=== PATIENT | female | born 1950 | race Caucasian/White ===

== ENCOUNTER → 2018-01-06 | Outpatient (CLI) | payer MEDICARE | END | disposition home or self-care (01) | LOC: CFH 08:57 → EDSTATUS 09:00 | PROVIDERS: ATTEND Internal Medicine Cardiovascular Disease | DX: I08.0 Rheumatic disorders of both mitral and aortic valves (principal); I10 Essential (primary) hypertension; I44.7 Left bundle-branch block, unspecified; E78.5 Hyperlipidemia, unspecified | CPT/HCPCS: 93306 ==

== ENCOUNTER → 2018-09-03 | Outpatient (CLI) | payer MEDICARE | END | disposition home or self-care (01) | LOC: CFH 14:01 | PROVIDERS: ATTEND Family Medicine | DX: M79.604 Pain in right leg (principal); R60.0 Localized edema ==

== ENCOUNTER → 2019-01-28 | Outpatient (CLI) | payer MEDICARE | END | disposition home or self-care (01) | LOC: CFH 10:49 | PROVIDERS: ATTEND Nurse Practitioner Family | DX: M47.814 Spondylosis without myelopathy or radiculopathy, thoracic region (principal) | CPT/HCPCS: 72146 ==

== ENCOUNTER → 2019-11-11 | Outpatient (CLI) | payer MEDICARE ==
[~2019-11-11] MED LIST: AMLO-150 PO; ASPI81TA45 PO; BIFI4CAP PO; BUPR-86 PO; BUPR150T73 PO; CARV12.52 PO; CHLO25TA PO; CHOL200024 PO; IBAN150T15 PO; IRBE150T25 PO; ROSU10TA2 PO
[2019-11-11 14:56] LABS: BASOPHILS # (AUTO) 0.07 x10^3/uL (0-0.1); BASOPHILS % (AUTO) 1 % (0-1); EOSINOPHILS # (AUTO) 0.21 x10^3/uL (0-0.4); EOSINOPHILS % (AUTO) 3 % (1-7); LYMPHOCYTES # (AUTO) 2.04 x10^3/uL (1-3.4); LYMPHOCYTES % (AUTO) 24 % (22-44); MD NO; MEAN CORPUSCULAR HEMOGLOBIN 31.5 pg (27.0-34.8); MEAN CORPUSCULAR HGB CONC 33.7 g/dL (32.4-35.8); MEAN CORPUSCULAR VOLUME 93.7 fL (80-100); MEAN PLATELET VOLUME 8.1 fL (7.4-10.4); MONOCYTES % (AUTO) 8 % (2-9); NEUTROPHILS # (AUTO) 5.42 x10^3/uL (1.8-6.8); NEUTROPHILS % (AUTO) 64 % (42-75); PLATELET COUNT 292 x10^3/uL (130-400); RED BLOOD COUNT 4.45 x10^6/uL (3.82-5.3); RED CELL DISTRIBUTION WIDTH 13.4 % (9.6-15.2)
[2019-11-11 15:06] LABS: ALANINE AMINOTRANSFERASE 16 U/L (12-78); ALBUMIN 3.7 g/dL (3.4-5.0); ANION GAP 6 mmol/L (5-15); CALCIUM 8.8 mg/dL (8.5-10.1); CHLORIDE 106 mmol/L (98-107); CREATININE 0.84 mg/dL (0.55-1.02)
[2019-11-11 15:09] LABS: ALKALINE PHOSPHATASE 59 U/L (45-117); BILIRUBIN,TOTAL 0.4 mg/dL (0.2-1.0); TOTAL PROTEIN 6.7 g/dL (6.4-8.2)
== END | disposition home or self-care (01) ==
LOC: STAR 13:42
PROVIDERS: ATTEND Orthopaedic Surgery
DX: Z01.818 Encounter for other preprocedural examination (principal); M16.11 Unilateral primary osteoarthritis, right hip
CPT/HCPCS: 36415; 80053; 85025; 87081; 93005

== ENCOUNTER 2019-11-22 08:04 | Observation (INO) | payer MEDICARE ==
[~2019-11-22] VITALS: Ht 162.6 cm; Wt 68.8 kg
[~2019-11-22 08:04] MED LIST changes: +EPINEPHRINE 1 MG/ML, 1ML ONE; +FENTANYL PF 250 MCG/5ML ONE; +KETOROLAC 60 MG/2 ML ONE; +MIDAZOLAM 1 MG/ML, 2ML ONE; +ROPIvacaine/PF 0.2%, 20 ML ONE; +SODIUM CHLORIDE 0.9% 50 ML ONE; +TRANEXAMIC ACID 100 MG/ML, 10ML ONE; +VANCOMYCIN 1,000 MG ONE
[2019-11-22] MEDS ORDERED: LACTATED RINGERS 1,000 ML IV SCH (08:42)
[2019-11-22 08:44] VITALS: BP 133/84
[2019-11-22] MEDS ORDERED: SUGAMMADEX 200 MG/2 ML IVPush ONE ×2 (08:51→09:55)
[2019-11-22] MEDS ORDERED: DEXAMETHASONE 4 MG/ML, 1ML ONE (08:52)
[2019-11-22] MEDS ORDERED: PROPOFOL 10 MG/ML, 20ML ONE (08:52)
[2019-11-22] MEDS ORDERED: SUCCINYLCHOLINE 20 MG/ML, 10ML ONE (08:52)
[2019-11-22] MEDS ORDERED: ROCURONIUM 10MG/ML,5ML ONE (08:52)
[2019-11-22] MEDS ORDERED: ONDANSETRON 2MG/ML, 2ML ONE (08:52)
[2019-11-22] MEDS ORDERED: GLYCOPYRROLATE 0.2MG/1ML, 5ML ONE (08:52)
[2019-11-22] MEDS ORDERED: NEOSTIGMINE 1 MG/ML, 10ML ONE (08:52)
[2019-11-22] MEDS ORDERED: CEFAZOLIN 1,000 MG ONE (08:52)
[2019-11-22] MEDS ORDERED: LIDOCAINE-MPF 1%, 2ML INFIL ONE (09:00)
[2019-11-22] MEDS ORDERED: ACETAMINOPHEN 500 MG TABLET ONE ×2 (09:37)
[2019-11-22] MEDS ORDERED: GABAPENTIN 300 MG CAPSULE ONE ×2 (09:37→09:38)
[2019-11-22] MEDS ORDERED: PROMETHAZINE 25 MG/ML, 1ML IV PRN (11:00)
[2019-11-22] MEDS ORDERED: HYDROmorphone 2 MG/ML, 1ML IVPush PRN (11:00)
[2019-11-22] MEDS ORDERED: MEPERIDINE/PF 25MG/0.5ML IVPush PRN (11:00)
[2019-11-22] MEDS ORDERED: ALBUTEROL SULFATE 2.5 MG/3 ML NPPB PRN (11:00)
[2019-11-22] MEDS ORDERED: DIAZEPAM 5 MG/ML, 2ML IVPush PRN (11:00)
[2019-11-22] MEDS ORDERED: LABETALOL 5MG/ML, 20ML IV PRN (11:00)
[2019-11-22] MEDS ORDERED: hydrALAzine 20 MG/ML, 1ML IV PRN (11:00)
[2019-11-22] MEDS ORDERED: FENTANYL PF 100 MCG/2ML ONE (11:47)
[2019-11-22] MEDS ORDERED: OXYcodone 5 MG/5 ML ORAL.SOL UDC ONE (11:48)
[2019-11-22] MEDS: OXYcodone 5 MG/5 ML ORAL.SOL UDC PO PRN ×2 (11:50→12:17)
[2019-11-22] MEDS: FENTANYL PF 100 MCG/2ML IV PRN ×2 (11:51→12:16)
[2019-11-22] MEDS ORDERED: SENNA/DOCUSATE TABLET PO PRN (12:00)
[2019-11-22] MEDS ORDERED: HYDROmorphone 1 MG/ML, 1ML INJ IVPush PRN (12:00)
[2019-11-22] MEDS ORDERED: DIPHENHYDRAMINE 25 MG CAPSULE PO PRN (12:00)
[2019-11-22] MEDS ORDERED: SCOPOLAMINE PATCH, 1.5MG PATCH.TD72 TD SCH (12:00)
[2019-11-22] MEDS ORDERED: PROMETHAZINE 12.5 MG SUPP PR PRN (12:00)
[2019-11-22] MEDS ORDERED: BISACODYL 10 MG SUPP PR PRN (12:00)
[2019-11-22] MEDS ORDERED: PSYLLIUM PACKET PO PRN (12:00)
[2019-11-22] MEDS ORDERED: ONDANSETRON 4 MG TABLET PO PRN (12:00)
[2019-11-22] MEDS ORDERED: ALUMINUM/MAG/SIMETHICONE 30 ML UDC PO PRN (12:00)
[2019-11-22] MEDS ORDERED: ONDANSETRON 2MG/ML, 2ML IV PRN (12:00)
[2019-11-22] MEDS: CALCIUM/VITAMIN D3 250-125 TABLET PO SCH ×2 (12:00→17:25)
[2019-11-22] MEDS ORDERED: ZOLPIDEM 5MG TABLET PO PRN (12:00)
[2019-11-22] MEDS ORDERED: DIAZEPAM 5 MG TABLET PO PRN (12:00)
[2019-11-22] MEDS ORDERED: OXYcodone IR 5MG TABLET PO PRN (12:00)
[2019-11-22] MEDS ORDERED: TRANEXAMIC ACID 1,000 MG in SODIUM CHLORIDE 0.9% 100 ML IVPB ONE (12:00)
[2019-11-22] MEDS ORDERED: MAGNESIUM HYDROXIDE 8%, 30ML UDC PO PRN (12:00)
[2019-11-22 12:50] VITALS: BP 108/65
[2019-11-22] MEDS: KETOROLAC 30 MG/1 ML IV SCH ×2 (13:48→23:18)
[2019-11-22] MEDS: D5%-0.45% NACL 1,000 ML IV SCH (14:52)
[2019-11-22] MEDS: CEFAZOLIN PMX 2GM/50ML 50 ML IVPB SCH ×2 (14:52→23:19)
[2019-11-22] MEDS: FERROUS SULFATE 325 MG TABLET PO SCH (17:25)
[2019-11-22] MEDS: ACETAMINOPHEN 500 MG TABLET PO SCH ×2 (17:25→23:18)
[2019-11-22] MEDS: ASPIRIN 81 MG TABLET EC PO SCH ×2 (17:25→21:37)
[2019-11-22 19:13] VITALS: BP 101/62
[2019-11-22] MEDS ORDERED: ATORVASTATIN 40 MG TABLET PO SCH (21:00)
[2019-11-22] MEDS: CARVEDILOL 12.5 MG TABLET PO SCH (21:37)
[2019-11-22] MEDS: DOCUSATE 100 MG CAPSULE PO SCH (21:38)
[2019-11-22 23:50] VITALS: BP 100/63
[2019-11-23 04:36] VITALS: BP 114/51
[2019-11-23] MEDS: ACETAMINOPHEN 500 MG TABLET PO SCH ×2 (05:05→10:50)
[2019-11-23] MEDS ORDERED: DEXAMETHASONE 4 MG/ML, 1ML IVPush SCH (06:00)
[2019-11-23] MEDS: D5%-0.45% NACL 1,000 ML IV SCH (06:20)
[2019-11-23 07:20] VITALS: BP 110/63
[2019-11-23] MEDS: KETOROLAC 30 MG/1 ML IV SCH (07:29)
[2019-11-23] MEDS: DOCUSATE 100 MG CAPSULE PO SCH (08:00)
[2019-11-23] MEDS: CALCIUM/VITAMIN D3 250-125 TABLET PO SCH ×2 (08:00→11:35)
[2019-11-23] MEDS: FERROUS SULFATE 325 MG TABLET PO SCH (08:00)
[2019-11-23] MEDS: ASPIRIN 81 MG TABLET EC PO SCH (08:00)
[2019-11-23] MEDS: CARVEDILOL 12.5 MG TABLET PO SCH (08:01)
[2019-11-23] MEDS ORDERED: CHLORTHALIDONE 25 MG TABLET PO SCH (09:00)
[2019-11-23] MEDS ORDERED: IRBESARTAN 150 MG TABLET PO SCH (09:00)
[2019-11-23] MEDS ORDERED: MULTIVITAMINS/MINERALS TABLET PO SCH (09:00)
[2019-11-23] MEDS ORDERED: AMLODIPINE 5 MG TABLET PO SCH (09:00)
[2019-11-23] MEDS ORDERED: ASCORBIC ACID 500 MG TABLET PO SCH (09:00)
== END 2019-11-23 12:49 | disposition home or self-care (01) ==
LOC: OUT 08:04 → EDSTATUS 09:45 → ORIP 11:32 → 4NE 12:43 → DCLOUNGE 11-23 12:28
PROVIDERS: ADMIT Orthopaedic Surgery; ATTEND Orthopaedic Surgery
DX: M16.11 Unilateral primary osteoarthritis, right hip (principal); M17.0 Bilateral primary osteoarthritis of knee; Z79.899 Other long term (current) drug therapy; Z79.82 Long term (current) use of aspirin
CPT/HCPCS: 27130; 36415; 72170; 85014; 85018; 86850; 86870; 86900; 86922; 86923; 96365; 96366; 96375; 96376; 97161; 97165; C1713; C1776; G0378; J0171; J0330; J0690; J1100; J1885; J2250; J2405; J2704; J2710; J2795; J3010; J3490; J7120; J3370

== ENCOUNTER → 2020-03-09 | Outpatient (CLI) | payer MEDICARE ==
[~2020-03-09] MED LIST changes: -EPINEPHRINE 1 MG/ML, 1ML ONE; -FENTANYL PF 250 MCG/5ML ONE; -IRBE150T25 PO; +IRBE150T9 PO; -KETOROLAC 60 MG/2 ML ONE; -MIDAZOLAM 1 MG/ML, 2ML ONE; -ROPIvacaine/PF 0.2%, 20 ML ONE; -SODIUM CHLORIDE 0.9% 50 ML ONE; -TRANEXAMIC ACID 100 MG/ML, 10ML ONE; -VANCOMYCIN 1,000 MG ONE
== END | disposition home or self-care (01) ==
LOC: CVU 07:42
PROVIDERS: ATTEND Internal Medicine Cardiovascular Disease
DX: Z13.6 Encounter for screening for cardiovascular disorders (principal); I25.10 Atherosclerotic heart disease of native coronary artery without angina pectoris; I08.0 Rheumatic disorders of both mitral and aortic valves; I11.9 Hypertensive heart disease without heart failure
CPT/HCPCS: 75571; 93306

== ENCOUNTER 2021-06-21 09:41 | Outpatient (CLI) | payer MEDICARE | END 2021-06-21 23:59 | disposition home or self-care (01) | LOC: CVU 09:41 | PROVIDERS: ATTEND Internal Medicine Cardiovascular Disease | DX: I87.2 Venous insufficiency (chronic) (peripheral) (principal); R60.9 Edema, unspecified | CPT/HCPCS: 93970 ==